=== PATIENT | male | born 1950 | race Caucasian/White ===

== ENCOUNTER 2021-01-02 01:55 | Observation (INO) | payer MEDICARE, OTHER, SELFPAY ==
[2021-01-02] VITALS (13 sets, daily range): BP systolic 124–173; BP diastolic 57–93; PULSE 69–96; RESP 16–19; TEMP 36.9–39.3; O2SAT 95–100; BMI 34.4; BMI 33.7
--- NOTE | 2021-01-02 02:02 | CT_ITS ---
STUDY: CT BRAIN WITHOUT CONTRAST REASON FOR EXAM: Male, 70 years old. fall RADIATION DOSAGE (If Supplied By Facility): CTDIvol = ( 44.99 ) mGy, DLP = ( 812.98 ) mGycm TECHNIQUE: Transaxial CT imaging of the brain was performed without administration of intravenous contrast material. Individualized dose optimization techniques were used for this CT. COMPARISON: No relevant priors. FINDINGS: Normal soft tissue structures. Normal calvarium. Normal size ventricles and extra-axial spaces for the patient''s age. Normal white matter tracts of the cerebral hemispheres. Normal basal ganglia and thalami. Normal brainstem. Normal cerebellum. There is no intracranial hemorrhage. There are no findings of an acute ischemic infarction. There is mucoperiosteal inflammatory disease of the paranasal sinuses consistent with mild chronic sinusitis. CT/Brain/Head without Contrast IMPRESSION: No acute intracranial abnormality. Electronically Signed: Dedra Ruiz MD at 3:14 EDT Tel , Service support ,
--- NOTE | 2021-01-02 02:02 | EKG12_ITS ---
Test Reason : FALL Blood Pressure : / mmHG Vent. Rate : 087 BPM Atrial Rate : 087 BPM P-R Int : 156 ms QRS Dur : 096 ms QT Int : 358 ms P-R-T Axes : 047 016 042 degrees QTc Int : 430 ms Normal sinus rhythm Nonspecific ST abnormality Abnormal ECG Confirmed by LUDMILA LUDWIG, KACI ([id number]), primer expeditor and drier JEFRY HERNANDEZ ([id number]) on 01/05/2021 1:16:54 PM Referred By: JOSÉ MIGUEL Confirmed By:KACI KEYS MD
--- NOTE | 2021-01-02 02:02 | RAD_ITS ---
STUDY: X-RAY CHEST REASON FOR EXAM: Male, 70 years old. sob TECHNIQUE: Single AP portable view of the chest. COMPARISON: None. FINDINGS: Ill-defined subpleural groundglass opacities are seen in the left upper lobe and left lower lobe, may represent atypical pneumonia or viral pneumonia (COVID-19 ?). There is no demonstrated pleural abnormality. Normal size heart. Normal mediastinum and leonel. Normal visualized pulmonary arteries. Normal visualized aortic arch and descending thoracic aorta. Normal visualized thoracic spine. Normal visualized ribs, clavicles, and shoulders. There is no demonstrated abnormality of the visualized soft tissue structures of the upper abdomen. RAD/Chest 1 View (Portable) IMPRESSION: Ill-defined subpleural groundglass opacities are seen in the left upper lobe and left lower lobe, may represent atypical pneumonia or viral pneumonia (COVID-19 ?). Electronically Signed: Dedra Ruiz MD at 3:16 EDT Tel , Service support ,
--- NOTE | 2021-01-02 02:03 | CT_ITS ---
STUDY: CT ABDOMEN AND PELVIS WITHOUT CONTRAST REASON FOR EXAM: Male, 70 years old. fall, leg weakness, H/O metastatic prostate CA RADIATION DOSAGE (If Supplied By Facility): CTDIvol = ( 15.35 ) mGy, DLP = ( 805.51 ) mGycm TECHNIQUE: Transaxial images were obtained from the dome of the diaphragm to the symphysis pubis without oral contrast, and without intravenous contrast. Sagittal and coronal images were reconstructed. Individualized dose optimization techniques were used for this CT. COMPARISON: None. FINDINGS: Multiple bilateral lung nodules consistent with metastatic lesions. The visualized portions of the heart are within normal limits. Normal liver. There is a solitary gallstone. Normal spleen. Normal pancreas. Normal bilateral adrenal glands. There is a right kidney stone measures 7 mm without hydronephrosis. Normal left kidney. Normal visualized stomach. Normal small intestine. Normal colon. There is non-visualization of the appendix. Normal abdominal aorta. Normal inferior vena cava. Normal retroperitoneum. Normal urinary bladder. Multiple osteoblastic lesions are seen in the osseous structures, the largest is at L5 suggesting metastatic disease Normal osseous structures. CT/Abdomen/Pelvis without Cont IMPRESSION: There is a right kidney stone measures 7 mm without hydronephrosis. Cholelithiasis. 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
--- NOTE | 2021-01-02 02:04 | EX.ED.DYSGE1 ---
HPI History of Present Illness Chief Complaint: Fall Informant: patient and EMS Onset/Context/Timing Onset: Yesterday Current Severity: Mild Maximum Severity: Moderate Narrative Narrative: Patient presents secondary to weakness with concerns for stroke. Patient states that last evening around 6:30 PM he was trying to log hooker a water softener. It fell over. The patient lost his balance and fell. He had difficulty standing up. He states he had to crawl around and was able to pull himself up. He felt that his right side was weaker than his left and was concerned for stroke. EMS was called early this morning. Patient does have a history of metastatic prostate cancer. He has recently been receiving radiation to his pelvis, right hip, right shoulder. He is on chemotherapy injections. He does report feeling a bit feverish throughout the day yesterday. He does report some mild congestion and took Coricidin. [facility] Medical History (Updated 01/02/21 @ 04:[address] Liyah Hernandez MD) Diabetes GERD (gastroesophageal reflux disease) Hypertension Prostate CA Allergy/AdvReac Type Severity Reaction Status Date / Time No Known Allergies Allergy Verified 01/02/21 02:04 Surgical History (Updated 01/02/21 @ 02:06 by Rabia Guevara) History of appendectomy Social History Smoking Status: Former smoker ROS [facility] ED Constitutional Constitutional ED: Reports fever(s) and subjective ENT ENT ED: Reports other Details: Congestion Cardiovascular Cardiovascular: Reports chest pain Respiratory/Chest Respiratory/Chest: Reports cough and dyspnea Gastrointestinal Gastrointestinal: Denies abdominal pain, diarrhea or vomiting Genitourinary Genitourinary ED: Reports dysuria Musculoskeletal Musculoskeletal: Reports back pain Neurologic Neurologic: Reports paresthesias RLE and weakness; Denies headache(s) Allergic/Immunologic Allergic/Immunologic ED: Denies urticaria EXAM Physical Exam Const Vital Signs: 01/02/21 01:58 01/02/21 02:04 01/02/21 02:35 Temperature 102.8 F H Temperature Source Oral Pulse Rate 94 Respiratory Rate 18 Respiratory Effort Normal Respiratory Pattern Normal Blood Pressure 157/66 H Blood Pressure Mean 96 Pulse Ox 95 Oxygen Delivery Method Room Air Room Air 01/02/21 02:58 01/02/21 03:42 01/02/21 04:42 Temperature 102 F H 100.2 F H 99.9 F H Temperature Source Oral Oral Oral Pulse Rate 82 72 80 Respiratory Rate 18 16 19 H Respiratory Effort Respiratory Pattern Blood Pressure 141/62 H 137/57 H 130/66 H Blood Pressure Mean 88 83 87 Pulse Ox 95 97 97 Oxygen Delivery Method Room Air Room Air Room Air Positive well nourished and well developed General Appearance ED: well developed HEENT Reports normocephalic and head/scalp atraumatic Eyes PERRL and EOMs intact bilaterally Neck supple Chest Wall inspection of chest normal and palpation of chest normal Resp normal respiratory effort and clear to auscultation bilaterally Cardio regular rate and regular rhythm GI normal to inspection, nondistended, normoactive bowel sounds and non-tender Palpation: soft Neuro oriented x3 Neuro Narrative: Patient able to raise both arms without difficulty. Patient able to raise both legs off the bed a small distance. He states this seems to be weaker than his baseline, but does affect both legs. Sensorium / Orientation: alert Psych mental status grossly normal Skin no rashes or lesions noted MDM MDM MDM Narrative Medical decision making narrative: Patient was given Tylenol for fever. Lab work and urinalysis obtained. Chest x-ray, head CT, CT flank obtained. Lab Data Attestation: I reviewed the patient's lab results. Labs: Laboratory Results - last 24 hr 01/02/21 01/02/21 01/02/21 02:00 02:00 02:00 WBC 4.3 L RBC 3.80 L Hgb 11.3 L Hct 33.0 L MCV 86.8 MCH 29.7 MCHC 34.2 RDW Std Deviation 43.4 RDW Coeff of Harris 13.9 Plt Count 168 MPV 8.8 Immature Gran % (Auto) 0.500 Neut % (Auto) 72.5 H Lymph % (Auto) 7.4 L [place] % (Auto) 19.4 H Eos % (Auto) 0.2 Baso % (Auto) 0.0 Absolute Neuts (auto) 3.2 Absolute Lymphs (auto) 0.32 L Nucleated RBC % 0 Differential Comment SCANNED Diff Path Review August foll PT 13.2 INR 1.1 APTT 29.9 Sodium 130 L Potassium 4.3 Chloride 99 Carbon Dioxide 25.0 Anion Gap 6 BUN 17 Creatinine 0.96 Estim Creat Clear Calc 67.90 Est GFR (MDRD) Af Amer 100 Est GFR (MDRD) Non-Af 83 BUN/Creatinine Ratio 17.7 Glucose 114 H Lactic Acid Calcium 9.5 Total Bilirubin 0.40 AST 34 ALT 37 Alkaline Phosphatase 80 Total Protein 8.3 H Albumin 3.9 Globulin 4.4 H Albumin/Globulin Ratio 0.9 Urine Color Urine Clarity Urine pH Ur Specific [place] Urine Protein Urine Glucose (UA) Urine Ketones Urine Occult Blood Urine Nitrite Urine Bilirubin Urine Urobilinogen Ur Leukocyte Esterase Urine RBC Urine WBC Ur Squamous Epith Cells Urine Bacteria Urine Mucus 01/02/21 01/02/21 02:20 03:45 WBC RBC Hgb Hct MCV MCH MCHC RDW Std Deviation RDW Coeff of Harris Plt Count MPV Immature Gran % (Auto) Neut % (Auto) Lymph % (Auto) [place] % (Auto) Eos % (Auto) Baso % (Auto) Absolute Neuts (auto) Absolute Lymphs (auto) Nucleated RBC % Differential Comment Diff Path Review PT INR APTT Sodium Potassium Chloride Carbon Dioxide Anion Gap BUN Creatinine Estim Creat Clear Calc Est GFR (MDRD) Af Amer Est GFR (MDRD) Non-Af BUN/Creatinine Ratio Glucose Lactic Acid 1.9 Calcium Total Bilirubin AST ALT Alkaline Phosphatase Total Protein Albumin Globulin Albumin/Globulin Ratio Urine Color Yellow Urine Clarity Clear Urine pH 6.5 Ur Specific [place] 1.015 Urine Protein 30 H Urine Glucose (UA) Normal Urine Ketones Negative Urine Occult Blood 10 H Urine Nitrite Negative Urine Bilirubin Negative Urine Urobilinogen Normal Ur Leukocyte Esterase Negative Urine RBC 0-5 SEEN Urine WBC 0 SEEN Ur Squamous Epith Cells 0 SEEN Urine Bacteria 0 SEEN Urine Mucus 0 SEEN Radiography Chest X-Ray - ED: 1 View, Read by ED Physician and Chronic Changes Diagnostic Testing: Radiology Impression Brain CT 01/02/21 02:02 IMPRESSION: No acute intracranial abnormality. Electronically Signed: Dedra Ruiz MD at 3:14 EDT Tel , Service support , Chest X-Ray 01/02/21 02:02 IMPRESSION: Ill-defined subpleural groundglass opacities are seen in the left upper lobe and left lower lobe, may represent atypical pneumonia or viral pneumonia (COVID-19 ?). Electronically Signed: Dedra Ruiz MD at 3:16 EDT Tel , Service support , Abdomen/Pelvis CT 01/02/21 02:03 IMPRESSION: There is a right kidney stone measures 7 mm without hydronephrosis. Cholelithiasis. Multiple osteoblastic lesions are seen in the lumbar spine, the largest is at L5 suggesting metastatic disease Electronically Signed: Dedra Ruiz MD at 4:48 EDT Tel , Service support , EKG Initial EKG: Attestation: I personally reviewed and interpreted this EKG as follows: Interpretation: Sinus Rhythm (Sinus at 87 with no acute ischemia.) Treatment and Re-Evaluation Comments:: Repeat evaluation patient resting comfortably. O2 sats are in the mid 90s. Blood work is unremarkable. Urinalysis shows no sign of acute infection. Head CT is normal. CT flank reveals a right renal stone. Multiple osteoblastic lesions are noted in the lumbar spine which is known to him. Unfortunately patient's Covid test did come back positive. He is vaccinated but is on chemotherapy. Nursing staff did note that even standing at bedside to urinate the patient's very weak and unsteady. He was unable to walk at home tonight. In light of this I will speak with hospitalist regarding admission to ensure he is safe for discharge to home. Discharge Plan Triage Chief Complaint: Fall ED Provider: Liyah Hernandez Dx/Rx/DC Orders Clinical Impression: COVID-19, Weakness Primary Care Provider: Julieth Dupont Referrals: Julieth Dupont MD [Primary Care Provider] - Disposition Disposition: Acute Care Hospital [facility]
[2021-01-02] MEDS: Acetaminophen 500 MG Tablet 1000 MG PO (02:12)
[2021-01-02 02:17] LABS: Absolute Lymphocyte Count 0.32 X10^3/uL (0.83-4.51); Absolute Neutrophil Count 3.2 X10^3/uL (2.0-7.7); Eosinophil# 0.01 X10^3/uL; Eosinophils% 0.2 % (0-5); Hemoglobin 11.3 g/dL (13.0-16.5); Lymphocyte # 0.32 X10^3/ul (0.83-4.51); Lymphocyte % 7.4 % (19-41); Mean Corp Hgb Conc 34.2 g/dL (32-36); Mean Corpuscular Hgb 29.7 pg (27.0-32.0); Mean Corpuscular Volume 86.8 fL (80-94); Mean Platelet Vol. 8.8 fl (6.2-12.0); Monocyte# 0.84 X10^3/uL; Monocyte% 19.4 % (0-10); NRBC Flagged by Analyzer 0 % (0-5); Neutrophil # 3.15 X10^3/uL (2.7-7.7); Neutrophil % 72.5 % (47-70); POSITIVE DIFFERENTIAL YES; Platelet Count 168 K/mm3 (150-450); RBC Distribution Width CV 13.9 % (11.6-14.6); RBC Distribution Width SD 43.4 fl (35.1-43.9); White Blood Count 4.3 K/mm3 (4.4-11.0)
[2021-01-02 02:40] LABS: International Normalized Ratio 1.1; Partial Thromboplast Time 29.9 Seconds (24.1-36.2); Prothrombin Time (Protime)PT. 13.2 SECONDS (11.7-14.9)
[2021-01-02 02:45] LABS: Differential Indicated SCAN CRITERIA MET
[2021-01-02 02:51] LABS: ALB/GLOB Ratio 0.9 RATIO (0.9-2.4); AST(SGOT) 34 U/L (15-37); Alanine Aminotransfer ALT/SGPT 37 U/L (16-61); Albumin, Serum 3.9 g/dL (3.2-5.0); Alkaline Phosphatase 80 U/L (45-117); Anion Gap 6 (5-15); BUN 17 mg/dL (7-18); BUN/Creat Ratio 17.7 RATIO (10-20); Calcium,Total 9.5 mg/dL (8.5-10.1); Chloride 99 mmol/L (98-107); Creatinine, Serum 0.96 mg/dL (0.70-1.30); EST Glomerular Filtration Rate 83 mL/min (>60); Est Glom Filt Rate - Afr Amer 100 mL/min (>60); Globulin 4.4 g/dL (2.2-4.2); Glucose 114 mg/dL (74-106); Potassium 4.3 mmol/L (3.5-5.1); Protein, Total 8.3 g/dL (6.4-8.2); Sodium Level 130 mmol/L (136-145)
[2021-01-02 03:04] LABS: Differential Comment SCANNED
[2021-01-02 03:21] LABS: Lactic Acid 1.9 mmol/L (0.4-1.9)
[2021-01-02 03:51] LABS: Bacteria 0 SEEN /hpf (None Seen); Mucous, Urine 0 SEEN /hpf (<or=2+); Squamous Epithelial Cells - UA 0 SEEN /hpf (0-5); White Blood Cells 0 SEEN /hpf (0-5)
[2021-01-02 03:53] LABS: Color, Urine Yellow (Yellow); Glucose, Dipstick Normal (Normal); Ketone-Dipstick Negative (Negative); Leukocyte Esterase-Dipstick Negative /ul (Negative); Nitrite-Dipstick Negative (Negative); Occult Blood-Urine 10 /ul (Negative); Protein-Dipstick 30 mg/dl (Negative); Specific Gravity, Urine 1.015 (1.002-1.030); Urine Bilirubin Dipstick Negative (Negative); Urine Clarity Clear (Clear); Urine Urobilinogen Normal (Normal); Urine pH 6.5 (5.0 - 8.0)
[2021-01-02 04:08] LABS: Red Blood Cells-Urine 0-5 SEEN /hpf (0-5)
--- NOTE | 2021-01-02 05:04 | PCM.HP.STD ---
HPI - General General Date of Admission: 01/02/21 Date of Service: 01/02/21 Chief Complaint: Falls, weakness. HPI Narrative The patient is a 70 y/o M w/ PMHx: Diabetes mellitus type II, Obesity, GERD, HTN, HLD, Metastatic Prostate CA with ongoing radiation to the pelvis, right hip, right shoulder as well as chemotherapy who presents to the [facility] ED on 01/02/21 with history of onset progressively worsening weakness, generalized reportedly falling the evening prior at approximately 6:30 PM while trying to couple water softener with difficulty standing following with eventual EMS call. Patient does report a mild cough over the last 2 days. In the ED patient also reports mild abdominal distention sensation and notes that his last bowel movement was the day of ED presentation. Patient does report having received COVID-19 vaccination, 2 dose series and is yet to receive his third booster. He denies any specific fever, chills, nausea, emesis, abdominal pain, diarrhea, headache, sore throat, alteration sense of taste or smell, marked dyspnea. Work-up in the ED included T102.8, heart rate 94, BP 157/66, respiratory rate 18, 95% on room air, CBC with WBC 4.3, hemoglobin 11.3, platelet 168 with lymphopenia, CMP with sodium 130, glucose 114, hepatic profile not marked appearing, lactic acid 1.9, coags unremarkable, CT brain with no acute intracranial abnormality, chest x-ray with ill-defined subpleural groundglass opacities in the left upper lobe and left lower lobe suspicious for Covid pneumonia, rapid Covid antigen positive, CT abdomen and pelvis with a right-sided kidney stone measuring 7 mm without hydronephrosis, cholelithiasis, multiple osteoblastic lesions in the upper lumbar spine with the largest at L5, blood culture x2 pending per ED, UA unremarkable, urine culture pending per ED. [facility] Medical History (Updated 01/02/21 @ 05:[address] Jasmine Bravo MD) Anxiety and depression Diabetes Former tobacco use GERD (gastroesophageal reflux disease) HLD (hyperlipidemia) Hypertension Prostate CA Home Medications enzalutamide [Xtandi] 120 mg PO DAILY 01/02/21 [History Last Taken Unknown] fluoxetine 40 mg PO DAILY 01/02/21 [History Last Taken Unknown] gabapentin 600 mg BID 01/02/21 [History Last Taken Unknown] glipizide 5 mg PO BID 01/02/21 [History Last Taken Unknown] lisinopril 20 mg DAILY 01/02/21 [History Last Taken Unknown] metformin 1,000 mg PO BID 01/02/21 [History Last Taken Unknown] nifedipine 30 mg PO DAILY PRN PRN 01/02/21 [History Last Taken Unknown] nifedipine 90 mg PO DAILY 01/02/21 [History Last Taken Unknown] oxycodone-acetaminophen [Percocet] 1 tab PO Q4H PRN 01/02/21 [History Last Taken Unknown] propranolol 20 mg PO BID 01/02/21 [History Last Taken Unknown] Allergy/AdvReac Type Severity Reaction Status Date / Time No Known Allergies Allergy Verified 01/02/21 02:04 Family History (Updated 01/02/21 @ 05:[address] Jasmine Bravo MD) Mother Hypertension other (Patient denies any marked paternal family history but notes he was killed at the age of 30 secondary to a tractor combine accident.) Surgical History (Updated 01/02/21 @ 05:[address] Jasmine Bravo MD) History of appendectomy History of surgery on arm unable to obtain (ADDITIONAL SURGERY: Epiglottidectomy.) Social History (Updated 01/02/21 @ 05:[address] Jasmine Bravo MD) household members: spouse Smoking Status: Former smoker how long ago did patient quit smoking: Quit completely 8 years prior, smoked intermittently up to that point. alcohol intake: current alcohol intake frequency: holidays/special occasions only substance use type: does not use ROS ROS Narrative Admission Review of Systems: CONSTITUTIONAL: No weight loss, fever, chills, + weakness or fatigue. HEENT: Eyes: No visual loss, blurred vision, double vision or yellow sclerae. Ears, Nose, Throat: No hearing loss, sneezing, congestion, runny nose or sore throat. SKIN: No rash or itching, lesions, wounds. CARDIOVASCULAR: No chest pain, chest pressure or chest discomfort, palpitations, edema, orthopnea, syncopal events. RESPIRATORY: + Mild cough. No shortness of breath, wheezing, hemoptysis. GASTROINTESTINAL: + Abdominal distention. No anorexia, nausea, vomiting or diarrhea, abdominal pain, melena, BRBPR. GENITOURINARY: No dysuria, frequency, urgency or retention. NEUROLOGICAL: No headache, dizziness, syncope, paralysis, ataxia, numbness or tingling in the extremities, focal weakness, change in bowel or bladder control, seizure. MUSCULOSKELETAL: + muscle, back pain, joint pain or stiffness. HEMATOLOGIC: + anemia, bleeding or bruising. LYMPHATICS: No enlarged nodes. No history of splenectomy. PSYCHIATRIC: + history of depression or anxiety. ENDOCRINOLOGIC: No reports of sweating, cold or heat intolerance. No polyuria or polydipsia. ALLERGIES: No history of asthma, hives, eczema or rhinitis. Vital Signs Vital Signs Vital Signs: 01/02/21 01:58 01/02/21 02:04 01/02/21 02:35 Temperature 102.8 F H Temperature Source Oral Pulse Rate 94 Respiratory Rate 18 Respiratory Effort Normal Respiratory Pattern Normal Blood Pressure 157/66 H Blood Pressure Mean 96 Pulse Ox 95 Oxygen Delivery Method Room Air Room Air 01/02/21 02:58 01/02/21 03:42 01/02/21 04:42 Temperature 102 F H 100.2 F H 99.9 F H Temperature Source Oral Oral Oral Pulse Rate 82 72 80 Respiratory Rate 18 16 19 H Respiratory Effort Respiratory Pattern Blood Pressure 141/62 H 137/57 H 130/66 H Blood Pressure Mean 88 83 87 Pulse Ox 95 97 97 Oxygen Delivery Method Room Air Room Air Room Air Weight Weight: 219 lb 12.814 oz Body Mass Index (BMI) 34.4 Physical Exam Narrative Physical Examination: General: Awake, alert, oriented x 3 and cooperative, seated upright in the ED bed in no apparent distress, fatigued appearing. Skin: Normal color, normal turgor, no icterus, no cyanosis. HEENT: AT/NC, EOMI, PERRLA, mildly dry MM, no carotid bruits or JVD noted. Lungs: CTA bilaterally, moderate effort, mild decrease BL bases, no rales, ronchi or wheezing. Heart: Regular rate and rhythm; no gallop, rub audible. Abdomen: Soft, obese, NTTP, distended, tympanic, mildly hyperactive distant BS, no HSM. Extremities: No cyanosis, clubbing, or edema. Neurological: Patient awake, alert, oriented as noted, cognitive function intact; pupils equally reactive to light and accommodation, cranial nerves II-XII grossly normal, moving all 4 extremities, no focal deficits, strength severely global decrease secondary to acute presentation. Psychiatric: Affect appears fatigued otherwise normal, no acute evidence of depressive or anxiety feelings. Results Lab / Micro Data Result Diagrams: 01/02/21 02:00 01/02/21 02:00 Labs: Laboratory Results - last 24 hr 01/02/21 02:00: WBC 4.3 L, RBC 3.80 L, Hgb 11.3 L, Hct 33.0 L, MCV 86.8, MCH 29.7, MCHC 34.2, RDW Std Deviation 43.4, RDW Coeff of Harris 13.9, Plt Count 168, MPV 8.8, Immature Gran % (Auto) 0.500, Neut % (Auto) 72.5 H, Lymph % (Auto) 7.4 L, [place] % (Auto) 19.4 H, Eos % (Auto) 0.2, Baso % (Auto) 0.0, Absolute Neuts (auto) 3.2, Absolute Lymphs (auto) 0.32 L, Nucleated RBC % 0, Differential Comment SCANNED, Diff Path Review August01/02/21 02:00: PT 13.2, INR 1.1, APTT 29.9 01/02/21 02:00: Sodium 130 L, Potassium 4.3, Chloride 99, Carbon Dioxide 25.0, Anion Gap 6, BUN 17, Creatinine 0.96, Estim Creat Clear Calc 67.90, Est GFR (MDRD) Af Amer 100, Est GFR (MDRD) Non-Af 83, BUN/Creatinine Ratio 17.7, Glucose 114 H, Calcium 9.5, Total Bilirubin 0.40, AST 34, ALT 37, Alkaline Phosphatase 80, Total Protein 8.3 H, Albumin 3.9, Globulin 4.4 H, Albumin/Globulin Ratio 0.9 01/02/21 02:20: Lactic Acid 1.9 01/02/21 03:45: Urine Color Yellow, Urine Clarity Clear, Urine pH 6.5, Ur Specific [place] 1.015, Urine Protein 30 H, Urine Glucose (UA) Normal, Urine Ketones Negative, Urine Occult Blood 10 H, Urine Nitrite Negative, Urine Bilirubin Negative, Urine Urobilinogen Normal, Ur Leukocyte Esterase Negative, Urine RBC 0-5 SEEN, Urine WBC 0 SEEN, Ur Squamous Epith Cells 0 SEEN, Urine Bacteria 0 SEEN, Urine Mucus 0 SEEN Micro: Microbiology 01/02/21 03:03 Nasal Secretion SARS-CoV-2 Antigen (Rapid) - Final SARS-CoV-2 (COVID 19) Radiology Impression Brain CT 01/02/21 02:02 IMPRESSION: No acute intracranial abnormality. Electronically Signed: Dedra Ruiz MD at 3:14 EDT Tel , Service support , Chest X-Ray 01/02/21 02:02 IMPRESSION: Ill-defined subpleural groundglass opacities are seen in the left upper lobe and left lower lobe, may represent atypical pneumonia or viral pneumonia (COVID-19 ?). Electronically Signed: Dedra Ruiz MD at 3:16 EDT Tel , Service support , Abdomen/Pelvis CT 01/02/21 02:03 IMPRESSION: There is a right kidney stone measures 7 mm without hydronephrosis. Cholelithiasis. Multiple osteoblastic lesions are seen in the lumbar spine, the largest is at L5 suggesting metastatic disease Electronically Signed: Dedra Ruiz MD at 4:48 EDT Tel , Service support , Assessment & Plan Assessment/Plan (1) COVID-19: (2) Weakness: PLAN: The patient is a 70 y/o M w/ PMHx: Diabetes mellitus type II, Obesity, GERD, HTN, HLD, Metastatic Prostate CA with ongoing radiation to the pelvis, right hip, right shoulder as well as chemotherapy who presents to the [facility] ED on 01/02/21 with history of onset progressively worsening weakness, generalized reportedly falling the evening prior at approximately 6:30 PM while trying to couple water softener with difficulty standing following with eventual EMS call. 1. Acute Encephalopathy, Frequent falls secondary to Acute L sided Pneumonia (Via CXR) secondary to Acute Viral Syndrome, COVID-19: Will admit to [facility] telemetry, maintain on Covid precautions, will maintain on oxygen with wean as tolerated to room air, PRN albuterol, HOB, IS parameters w/ pending sputum cultures, respiratory viral panel and urine antigens, will obtain D-dimer, procalcitonin, CRP, CPK, Ferritin, LDH, trop and BNP, continue supportive care including q 2 hour turning including prone given no prone bed availability and judicious hydration, closely monitor for worsening status for ARDS and multiorgan failure, given patient is not currently hypoxic will defer any initiation of decadron or remdesivir but low threshold to start if onset hypoxia. PT/OT/case management consultations for discharge planning. 2. Metastatic prostate cancer: CT abdomen and pelvis as noted with significant multiple osteoblastic lesions in the upper lumbar spine as well as BL lung nodules consistent with metastatic disease, patient with metastatic prostate cancer with ongoing radiation to the pelvis, right hip as well as right shoulder in addition to ongoing chemotherapy, complicates presentation, will obtain magnesium and phosphorus levels and replete as needed, continue home Xtandi. 3. Incidental right-sided kidney stone: CT abdomen pelvis with a 7 mm right-sided kidney stone with no evidence of any hydronephrosis. 4. Diabetes mellitus type II: Hold oral home regimen, ADA diet, accu checks w/ ISS. 5. Hypertension: Continue home regimen including lisinopril, propranolol, nifedipine with hold parameters as needed, PRN hydralazine. 6. Hyperlipidemia: Not on regimen, defer to outpatient. 7. Obesity: Encourage appropriate diet and lifestyle alterations. 8. NICO: CPAP nightly. 9. DVT prophylaxis: SCDs, Lovenox. 10. CODE status: Patient MENA is his and living will is currently in place. Discussed CODE status at length including difference between FULL code, DNR-CCA and DNR-CC status. Following discussions about the differences in these status, requested Full Code status despite significant comorbidities including metastatic prostate CA. Advanced Care Planning Face to Face Time: 16 minutes. Charges/Coding Visit Charges OBSV E&M: 32208 Initial observation care L3 Procedures Hospitalists Procedures: [id number] Advncd Care Plan 30 Min
[2021-01-02 05:54] LABS: Procalcitonin 0.18 ng/mL (0.00-0.09)
[2021-01-02 05:55] LABS: Ferritin 170 ng/mL (26-388); LDH 228 U/L (87-241); Magnesium 2.1 mg/dL (1.6-2.6); Phosphorus 3.7 mg/dL (2.5-4.9)
[2021-01-02 05:57] LABS: D-Dimer Quantitative (DVT/PE) 0.84 FEU/ug/m (0.27-0.49)
[2021-01-02] MEDS: 0.9% Saline Lock 10 ML Syringe IV (06:37)
[2021-01-02] MEDS: 0.9% Normal Saline 1,000 ML 100 ML IV (06:37)
[2021-01-02 06:45] LABS: Bedside Glucose 118 mg/dL (70-110)
[2021-01-02 07:26] LABS: BNP,B-Type NATRIURETIC PEPTIDE 81.1 pg/mL (0-100)
[2021-01-02] MEDS: Gabapentin 600 MG Tablet PO ×2 (07:56→20:58)
[2021-01-02] MEDS: Acetaminophen 325 MG Tablet 650 MG PO ×3 (07:56→21:28)
[2021-01-02] MEDS: Lisinopril 20 MG Tablet PO (07:56)
[2021-01-02] MEDS: FLUoxetine 20 MG Capsule 40 MG PO (07:56)
[2021-01-02] MEDS: oxyCODONE 5 MG Tablet PO ×3 (07:57→20:59)
[2021-01-02] MEDS: Enoxaparin 30 MG/0.3 ML Syringe SC ×2 (10:02→20:58)
[2021-01-02] MEDS: Propranolol 10 MG Tablet 20 MG PO ×2 (10:02→20:58)
[2021-01-02] MEDS: NIFEdipine 90 MG Tablet PO (10:02)
--- NOTE | 2021-01-02 10:43 | CASEMGMT ---
DINA DEMPSEY Assessment: Face to Face with pt for initial transition planning/care coordination assessment. DINA DEMPSEY introduced self and role at [facility], pt voices understanding and consents to assessment. Pt is A/O x4 and answers all questions appropriately at this time. Pt lying in bed on RA in no distress. Care providers, pharmacy, and demographics verified/updated. Admitting Dx: COVID, weakness PCP:Cresencio Specialists: shivani Vaz Pharmacy: [facility] Insurance: [facility], [facility] [place] Prescription Benefit: yes LW/HPOA: Pt states he has a LW and DPOA. States his DPOA is his , Vika Cardoso. He is aware that these documents are not on file at [facility] and he may bring in to be scanned into the chart. LNOK: Vika Cardoso, Living Arrangements: Pt lives with in a single story house with no steps to enter. Pt reports prior to hospitalization he was I in ADL's and denies concerns at home. Transportation: Pt drives self and denies concerns with transportation. DME/HHC/SNF: Pt denies having any DME in the home, previous HHC or SNF stays. Pt was first tested for COVID at [facility]. His does not have COVID but is being tested today. Pt can quarantine from if needed on dc by using separate bedrooms and bathrooms. Pt states he has family who can bring groceries and supplies to him. Provided pt with list of local in network DME providers should he need O2 on dc, he has no preference. Currently pt is not using O2. Pt states no concerns with going home at time of dc. Pt states no further concerns/needs. CM to follow. Advised pt to ask CM if any further question/concerns/needs arise, voices understanding. Pt Goal: Home Plan: Home
[2021-01-02 11:11] LABS: Bedside Glucose 135 mg/dL (70-110)
[2021-01-02 13:27] LABS: Pathologist Review Reviewed
--- NOTE | 2021-01-02 14:21 | PCM.PN.HOSP ---
Subjective Subjective Patient was seen and examined. Admitted this morning with generalized weakness. Vitals remained stable. Not on oxygen Labs reviewed We will continue to monitor PT and OT to evaluate and treat Possible discharge in a.m. Objective Data Objective Data Vital Signs: Vital Signs Temp Pulse Resp BP Pulse Ox 99.8 F H 75 18 170/71 H 97 01/02/21 13:57 01/02/21 13:57 01/02/21 13:57 01/02/21 13:57 01/02/21 13:57 Oxygen Delivery Method Room Air Weight: 97.7 kg Body Mass Index (BMI) 33.7 Intake & Output: Intake and Output for Last 24 Hours 12/31/20 01/01/21 01/02/21 23:59 23:59 23:59 Intake Total 250 / 250 Balance 250 / 250 Lab / Micro Data Result Diagrams: 01/02/21 02:00 01/02/21 02:00 Labs: Laboratory Results - last 24 hr 01/02/21 02:00: WBC 4.3 L, RBC 3.80 L, Hgb 11.3 L, Hct 33.0 L, MCV 86.8, MCH 29.7, MCHC 34.2, RDW Std Deviation 43.4, RDW Coeff of Harris 13.9, Plt Count 168, MPV 8.8, Immature Gran % (Auto) 0.500, Neut % (Auto) 72.5 H, Lymph % (Auto) 7.4 L, [place] % (Auto) 19.4 H, Eos % (Auto) 0.2, Baso % (Auto) 0.0, Absolute Neuts (auto) 3.2, Absolute Lymphs (auto) 0.32 L, Nucleated RBC % 0, Differential Comment SCANNED, Diff Path Review Reviewed 01/02/21 02:00: PT 13.2, INR 1.1, APTT 29.9 01/02/21 02:00: Sodium 130 L, Potassium 4.3, Chloride 99, Carbon Dioxide 25.0, Anion Gap 6, BUN 17, Creatinine 0.96, Estim Creat Clear Calc 67.90, Est GFR (MDRD) Af Amer 100, Est GFR (MDRD) Non-Af 83, BUN/Creatinine Ratio 17.7, Glucose 114 H, Calcium 9.5, Total Bilirubin 0.40, AST 34, ALT 37, Alkaline Phosphatase 80, Total Protein 8.3 H, Albumin 3.9, Globulin 4.4 H, Albumin/Globulin Ratio 0.9 01/02/21 02:00: Phosphorus 3.7, Magnesium 2.1, Ferritin 170, Lactate Dehydrogenase 228, C-React Prot Ext Range 20.30 H 01/02/21 02:00: B-Natriuretic Peptide 81.1 01/02/21 02:20: Lactic Acid 1.9 01/02/21 02:20: D-Dimer Quant (PE/DVT) 0.84 H* 01/02/21 03:45: Urine Color Yellow, Urine Clarity Clear, Urine pH 6.5, Ur Specific [place] 1.015, Urine Protein 30 H, Urine Glucose (UA) Normal, Urine Ketones Negative, Urine Occult Blood 10 H, Urine Nitrite Negative, Urine Bilirubin Negative, Urine Urobilinogen Normal, Ur Leukocyte Esterase Negative, Urine RBC 0-5 SEEN, Urine WBC 0 SEEN, Ur Squamous Epith Cells 0 SEEN, Urine Bacteria 0 SEEN, Urine Mucus 0 SEEN 01/02/21 05:16: Procalcitonin 0.18 H 01/02/21 06:37: POC Glucose 118 H 01/02/21 11:01: POC Glucose 135 H Micro: Microbiology 01/02/21 03:45 Urine, Clean Catch Legionella Antigen - Final 01/02/21 03:45 Urine, Clean Catch Streptococcus pneumoniae Antigen (M - Final 01/02/21 03:03 Nasal Secretion SARS-CoV-2 Antigen (Rapid) - Final SARS-CoV-2 (COVID 19) Radiography Diagnostic Testing: Radiology Impression Brain CT 01/02/21 02:02 IMPRESSION: No acute intracranial abnormality. Electronically Signed: Dedra Ruiz MD at 3:14 EDT Tel , Service support , Chest X-Ray 01/02/21 02:02 IMPRESSION: Ill-defined subpleural groundglass opacities are seen in the left upper lobe and left lower lobe, may represent atypical pneumonia or viral pneumonia (COVID-19 ?). Electronically Signed: Dedra Ruiz MD at 3:16 EDT Tel , Service support , Abdomen/Pelvis CT 01/02/21 02:03 IMPRESSION: There is a right kidney stone measures 7 mm without hydronephrosis. Cholelithiasis. 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
--- NOTE | 2021-01-02 16:04 | CASEMGMT ---
DINA CM in to discuss VANG form with patient. RN CM explained VANG form, patient voiced understanding. Pt signed form and filed in chart. Pt provided with a copy of signed VANG form. Patient had no further questions or concerns at this time.
[2021-01-02 16:32] LABS: Bedside Glucose 112 mg/dL (70-110)
[2021-01-03 01:20] LABS: Bedside Glucose 126 mg/dL (70-110)
[2021-01-03 02:00] VITALS: O2SAT 97
[2021-01-03 03:02] VITALS: BP 126/76; PULSE 64; RESP 16; TEMP 36.6; O2SAT 100
[2021-01-03] MEDS: Acetaminophen 325 MG Tablet 650 MG PO ×2 (06:53→13:58)
[2021-01-03] MEDS: oxyCODONE 5 MG Tablet PO ×2 (06:55→13:58)
[2021-01-03 07:41] LABS: Bedside Glucose 149 mg/dL (70-110)
[2021-01-03 08:15] LABS: Absolute Lymphocyte Count 0.64 X10^3/uL (0.83-4.51); Absolute Neutrophil Count 1.7 X10^3/uL (2.0-7.7); Eosinophil# 0.02 X10^3/uL; Eosinophils% 0.7 % (0-5); Hematocrit 32.7 % (40-54); Hemoglobin 10.9 g/dL (13.0-16.5); Lymphocyte # 0.64 X10^3/ul (0.83-4.51); Lymphocyte % 21.1 % (19-41); Mean Corp Hgb Conc 33.3 g/dL (32-36); Mean Corpuscular Hgb 29.7 pg (27.0-32.0); Mean Corpuscular Volume 89.1 fL (80-94); Mean Platelet Vol. 9.1 fl (6.2-12.0); Monocyte# 0.71 X10^3/uL; Monocyte% 23.4 % (0-10); NRBC Flagged by Analyzer 0 % (0-5); Neutrophil # 1.66 X10^3/uL (2.7-7.7); Neutrophil % 54.5 % (47-70); Platelet Count 168 K/mm3 (150-450); Red Blood Count 3.67 M/mm3 (4.6-6.2)
[2021-01-03 08:43] LABS: ALB/GLOB Ratio 0.9 RATIO (0.9-2.4); AST(SGOT) 31 U/L (15-37); Alanine Aminotransfer ALT/SGPT 37 U/L (16-61); Albumin, Serum 3.4 g/dL (3.2-5.0); Alkaline Phosphatase 71 U/L (45-117); Anion Gap 6 (5-15); BUN 18 mg/dL (7-18); BUN/Creat Ratio 20.4 RATIO (10-20); Calcium,Total 8.6 mg/dL (8.5-10.1); Chloride 102 mmol/L (98-107); Creatinine, Serum 0.88 mg/dL (0.70-1.30); EST Glomerular Filtration Rate 91 mL/min (>60); Est Glom Filt Rate - Afr Amer 110 mL/min (>60); Estimated Creatinine Clearance 74.07 ml/min; Globulin 3.9 g/dL (2.2-4.2); Glucose 140 mg/dL (74-106); Potassium 4.1 mmol/L (3.5-5.1); Protein, Total 7.3 g/dL (6.4-8.2); Sodium Level 133 mmol/L (136-145)
[2021-01-03] MEDS: NIFEdipine 90 MG Tablet PO (08:49)
[2021-01-03] MEDS: Propranolol 10 MG Tablet 20 MG PO (08:49)
[2021-01-03] MEDS: Lisinopril 20 MG Tablet PO (08:50)
[2021-01-03] MEDS: Enoxaparin 30 MG/0.3 ML Syringe SC (08:50)
[2021-01-03] MEDS: Gabapentin 600 MG Tablet PO (08:50)
[2021-01-03] MEDS: FLUoxetine 20 MG Capsule 40 MG PO (08:50)
[2021-01-03] MEDS: ENZALUTAMIDE 40 MG CAPSULE 160 MG PO (08:54)
[2021-01-03] MEDS: 0.9% Saline Lock 10 ML Syringe IV (08:57)
[2021-01-03 09:00] VITALS: BP 138/95; PULSE 65; RESP 16; TEMP 36.5; O2SAT 99
--- NOTE | 2021-01-03 10:44 | PCM.DC.SUM ---
Providers Date of Admission: 01/02/21 Date of Discharge: 01/03/21 Primary Care Physician: Dr. Julieth Dupont MD Reason For Visit: COVID, WEAKNESS Diagnosis Discharge Diagnosis (1) COVID-19: Status: Acute Code(s): U07.1 - COVID-19 (2) Weakness: Status: Acute Code(s): R53.1 - Weakness (3) Acute metabolic encephalopathy: Status: Acute Code(s): G93.41 - Metabolic encephalopathy Medications at Discharge Home Medications Xtandi 160 mg PO DAILY 01/02/21 fluoxetine 40 mg PO DAILY 01/02/21 gabapentin 600 mg PO BID 01/02/21 glipizide 5 mg PO BID 01/02/21 lisinopril 20 mg PO DAILY 01/02/21 metformin 1,000 mg PO BID 01/02/21 nifedipine 30 mg PO DAILY PRN PRN 01/02/21 nifedipine 90 mg PO DAILY 01/02/21 oxycodone-acetaminophen [Percocet] 1 tab PO Q4H PRN 01/02/21 propranolol 20 mg PO BID 01/02/21 Hospital Course Operations None Procedures None Summary of Care Provided Minutes Spent on Discharge: 45 Hospital Course: 70-year-old with past medical history of type II DM, metastatic prostate CA undergoing radiation therapy as well as chemotherapy who presents with progressive weakness. Patient was initially admitted with concerns for stroke. He had try to get up to hold A water softener. If fell over, he lost his balance and fell. He has had progressive difficulty standing. He reported upper respiratory symptoms. His COVID-19 antigen test was positive. Patient has been vaccinated. His oxygen sats in the ED was stable. His admitting blood work was unremarkable. CT of the head as well as urinalysis were unremarkable. CT scan of the abdomen and pelvis showed multiple osteoblastic lesions. [facility] and monitored. His pain was controlled on his pain regimen. Patient did not require oxygen throughout his whole time in the hospital. He was seen by PT and OT and no further therapy was recommended. Patient was asked to continue to quarantine for total of 10 days. He needs to follow-up with his primary care doctor after that. Physical Exam Narrative Physical exam: General: Alert, oriented x3, cooperative, no apparent distress, well developed HEENT: Atraumatic Oral: Moist Mucosa Neck: Supple Lungs: Diminished to auscultation Cardiovascular: HS I+II, regular, no murmurs Abdomen: Bowel Sounds Present, Soft, Non Tender Extremities: No edema Weight / BMI Weight Weight: 96.5 kg Body Mass Index (BMI) 33.7 ABG / Lab / Microbiology Data Result Diagrams: 01/03/21 07:35 01/03/21 07:35 Laboratory: Laboratory Results - last 24 hr 01/02/21 02:00: Diff Path Review Reviewed 01/02/21 11:01: POC Glucose 135 H 01/02/21 16:12: POC Glucose 112 H 01/02/21 23:03: POC Glucose 126 H 01/03/21 06:52: POC Glucose 149 H 01/03/21 07:35: WBC 3.0 L, RBC 3.67 L, Hgb 10.9 L, Hct 32.7 L, MCV 89.1, MCH 29.7, MCHC 33.3, RDW Std Deviation 46.0 H, RDW Coeff of Harris 14.0, Plt Count 168, MPV 9.1, Immature Gran % (Auto) 0.300, Neut % (Auto) 54.5, Lymph % (Auto) 21.1, [place] % (Auto) 23.4 H, Eos % (Auto) 0.7, Baso % (Auto) 0.0, Absolute Neuts (auto) 1.7 L, Absolute Lymphs (auto) 0.64 L, Nucleated RBC % 0 01/03/21 07:35: Sodium 133 L, Potassium 4.1, Chloride 102, Carbon Dioxide 25.0, Anion Gap 6, BUN 18, Creatinine 0.88, Estim Creat Clear Calc 74.07, Est GFR (MDRD) Af Amer 110, Est GFR (MDRD) Non-Af 91, BUN/Creatinine Ratio 20.4 H, Glucose 140 H, Calcium 8.6, Total Bilirubin 0.20, AST 31, ALT 37, Alkaline Phosphatase 71, Total Protein 7.3, Albumin 3.4, Globulin 3.9, Albumin/Globulin Ratio 0.9 Microbiology: Microbiology 01/02/21 03:45 Urine, Clean Catch Urine Culture - Preliminary Culture exhibits no growth. 01/02/21 11:15 Mucosa - Nasopharyngeal Respiratory Panel (PCR) - Final 01/02/21 03:45 Urine, Clean Catch Legionella Antigen - Final 01/02/21 03:45 Urine, Clean Catch Streptococcus pneumoniae Antigen (M - Final 01/02/21 03:03 Nasal Secretion SARS-CoV-2 Antigen (Rapid) - Final SARS-CoV-2 (COVID 19) D/C Instructions Discharge Diet: 2000 Calorie Control Diet and 2000 mg Sodium Diet Meaningful Use Info Meaningful Use Diagnoses (Choose all that apply): None applicable Discharge Plan Admission Admit Date/Time: 01/02/21 06:59 Primary Reason for Your Visit: Debility, Acute COVID-19 infection Attending Provider: Yanira Jimenez Primary Care Provider: Julieth Dupont Discharge Orders/Prescriptions Prescriptions: Continued fluoxetine 40 mg capsule 40 mg PO DAILY RF: 0 nifedipine 90 mg tablet extended release 90 mg PO DAILY RF: 0 propranolol 20 mg tablet 20 mg PO BID RF: 0 Xtandi 40 mg tablet 160 mg PO DAILY RF: 0 gabapentin 300 mg capsule 600 mg PO BID RF: 0 nifedipine 30 mg Tablet Extended Release 30 mg PO DAILY PRN PRN (Reason: Hypertension) RF: 0 oxycodone-acetaminophen [Percocet] 5-325 mg Tablet 1 tab PO Q4H PRN (Reason: Pain) RF: 0 metformin 1,000 mg Tablet 1,000 mg PO BID RF: 0 lisinopril 10 mg tablet 20 mg PO DAILY RF: 0 glipizide 5 mg Tablet 5 mg PO BID RF: 0 Referrals / Follow Up: Julieth Dupont MD [Primary Care Provider] - Within 2 Weeks Disposition Disposition (needs filled in before D/C Order can be placed): Home, Self Care Charges/Coding Visit Charges Inpatient E&M: 82080 Disch Hosp
[2021-01-03 11:00] VITALS: O2SAT 97
--- NOTE | 2021-01-03 11:01 | NURSING ---
per therapy Manasa: spo2 97% with activity.
[2021-01-03 12:51] LABS: Bedside Glucose 139 mg/dL (70-110)
[2021-01-03 14:13] VITALS: BP 114/83; PULSE 56; RESP 16; TEMP 36.7; O2SAT 100
== END 2021-01-03 14:22 | disposition home or self-care (01) ==
LOC: ED 05:12 → MS3 05:28
PROVIDERS: Admitting Provider Family Medicine; Emergency Provider Emergency Medicine; PCP Family Medicine; Visit Provider Internal Medicine
DX: U07.1 COVID-19 (principal); G93.41 Metabolic encephalopathy; K21.9 Gastro-esophageal reflux disease without esophagitis; E11.9 Type 2 diabetes mellitus without complications; I10 Essential (primary) hypertension; E78.5 Hyperlipidemia, unspecified; E66.9 Obesity, unspecified; G47.33 Obstructive sleep apnea (adult) (pediatric); R14.0 Abdominal distension (gaseous); R53.1 Weakness; R06.00 Dyspnea, unspecified; R53.83 Other fatigue; N20.0 Calculus of kidney; R94.31 Abnormal electrocardiogram [ECG] [EKG]; C61 Malignant neoplasm of prostate; C79.9 Secondary malignant neoplasm of unspecified site; R29.6 Repeated falls; Z87.891 Personal history of nicotine dependence; Z68.34 Body mass index [BMI] 34.0-34.9, adult; Z79.899 Other long term (current) drug therapy; Z79.84 Long term (current) use of oral hypoglycemic drugs; Z92.21 Personal history of antineoplastic chemotherapy; Z92.3 Personal history of irradiation; R20.2 Paresthesia of skin; R07.9 Chest pain, unspecified
CPT/HCPCS: 36415; 70450; 71045; 74176; 80053; 81001; 82728; 82962; 83605; 83615; 83735; 83880; 84100; 84145; 85025; 85379; 85610; 85730; 86140; 87040; 87070; 87086; 87205; 87426; 87449; 87633; 93005; 96360; 96361; 96372; 97110; 97116; 97162; 97166; 99218; 99251; 99285; J7030; A4216; G0378; G0463